=== PATIENT | male | born 1945 | race Caucasian/White ===

== ENCOUNTER 2018-02-14 17:36 | Emergency (ER) | payer OTHER ==
[~2018-02-14] VITALS: Ht 177.8 cm; Wt 81.6 kg
--- NOTE | 2018-02-14 18:04 | ED SYNCOPE COMPLAINT ---
History of Present Illness General Chief Complaint: Syncope and Near-Syncope Stated Complaint: BIBA FOR SYNCOPE Source: patient, old records, EMS Exam Limitations: no limitations Vital Signs & Intake/Output Vital Signs & Intake/Output Vital Signs Date Time Temp Pulse Resp B/P B/P Pulse O2 O2 Flow FiO2 Mean Ox Delivery Rate 02/14 1922 98.0 71 20 142/89 02/15 1920 98.0 71 20 142/89 96 Room Air 02/15 1752 98.0 73 20 133/71 95 Room Air Allergies Coded Allergies: NO KNOWN ALLERGIES (09/13/11) Triage Nurses Notes Reviewed? yes HPI: Patient brought in by ambulance after a syncopal episode at home which was witnessed by his . Patient has no recollection of what happened. Patient thinks he might been getting up to do something but can't even say for sure that he was doing that. Patient is a drinker but does not remember if he had anything the drink today. His is not present in the emergency department. Patient noted to have an abrasion to his tongue with dried blood on his lips. Patient denies any seizure-like activity that he remembers and EMS states that the did not mention anything about it. Patient is unsure if he took an extra dose of insulin by mistake. He denies any suicidal or homicidal ideations. (Aidan STEPHENS,Martín Dozier) Past History Travel History Traveled to [place] past 21 day No Medical History Any Pertinent Medical History? see below for history Cardiovascular: AFIB, hypertension Endocrine: diabetes History of MRSA: No History of VRE: No History of CDIFF: No Surgical History Surgical History: non-contributory Psychosocial History Who do you live with Spouse Services at Home None What is your primary language Slovenian Tobacco Use: Quit >30 days ago ETOH Use: heavy use Illicit Drug Use: denies illicit drug use Family History Hx Contributory? No (Martín Bermudez MD) Review of Systems Review of Systems Constitutional: Reports: no symptoms. EENTM: Reports: no symptoms. Respiratory: Reports: no symptoms. Cardiovascular: Reports: no symptoms. GI: Reports: no symptoms. Genitourinary: Reports: no symptoms. Musculoskeletal: Reports: no symptoms. Skin: Reports: no symptoms. Neurological/Psychological: Reports: no symptoms. All Other Systems: Reviewed and Negative (Aidan STEPHENS,Martín Dozier) Physical Exam Physical Exam General Appearance: well developed/nourished, alert, awake, anxious, mild distress Head: atraumatic, normal appearance Eyes: Bilateral: PERRL, EOMI. Ears, Nose, Throat: TONGUE ABRASION Neck: normal inspection, supple, full range of motion Respiratory: normal breath sounds, chest non-tender, no respiratory distress, lungs clear Cardiovascular: normal peripheral pulses, irregularly irregular Gastrointestinal: normal bowel sounds, soft, non-tender, no organomegaly Back: normal inspection, normal range of motion Extremities: normal inspection, normal capillary refill, normal range of motion, no edema Psychiatric: awake, alert, oriented x 3 Cranial Nerves: normal hearing, normal speech, PERRL Coordination/Gait: normal finger to nose Motor/Sensory: no motor/sensory deficits Skin: intact, normal color, warm/dry Core Measures ACS in differential dx? No CVA/TIA Diagnosis: No Sepsis Present: No Sepsis Focused Exam Completed? No (Aidan STEPHENS,Martín Dozier) Progress Differential Diagnosis: AMI, orthostatic syncope, seizure, HYPOGLYCEMIA Plan of Care: Orders Procedure Date/time Status Add-on Test (ER Only) 02/14 1830 Active MAGNESIUM 02/14 1805 Complete Telemetry/Contact Lens Technician 02/14 1803 Active URINE DRUG SCREEN FOR ER ONLY 02/14 1803 Active URINALYSIS 02/14 1803 Active TROPONIN LEVEL 02/14 1803 Complete ETHANOL 02/14 1803 Complete COMPREHENSIVE METABOLIC PANEL 02/14 1803 Complete CREATINE PHOSPHOKINASE 02/14 1803 Complete CBC WITHOUT DIFFERENTIAL 02/14 1803 Complete EKG 02/14 1736 Active Current Medications Sig/Cesar Start time Last Medication Dose Stop Time Status Admin Cyanocobalamin/ 1 BAG ONCE ONE 02/15 2000 AC 02/14 Thiamine/Pyridoxine 02/15 0401 1928 (Vitamin in I.V.) Magnesium Sulfate 2 GM Dextrose/Water 1,000 ML (D5W 1000) Cyanocobalamin/ 1 BAG ONCE ONE 02/14 1830 CAN Thiamine/Pyridoxine 02/15 0229 (Vitamin in I.V.) Dextrose/Water 1,000 ML (D5W 1000) Laboratory Tests 02/14/18 1805: Anion Gap 16, Estimated GFR > 60, BUN/Creatinine Ratio 8.9, Glucose 195 H, Calcium 9.1, Magnesium 1.5 L, Total Bilirubin 0.7, AST 69 H, ALT 54, Alkaline Phosphatase 71, Creatine Kinase 127, Troponin I < 0.01, Total Protein 6.6, Albumin 4.0, Globulin 2.6, Albumin/Globulin Ratio 1.5, CBC w Diff NO MAN DIFF REQ, RBC 4.06 L, MCV 97.9 H, MCH 33.5 H, MCHC 34.3, RDW 13.3, MPV 8.1, Gran % 74.3, Lymphocytes % 13.5 L, Monocytes % 10.7 H, Eosinophils % 1.1, Basophils % 0.4, Absolute Granulocytes 5.6, Absolute Lymphocytes 1.0 L, Absolute Monocytes 0.8 H, Absolute Eosinophils 0.1, Absolute Basophils 0, Serum Alcohol 15.0 Diagnostic Imaging: Viewed by Me: Radiology Read, CT Scan. Discussed w/RAD: Radiology Read, CT Scan. Initial ED EKG: AFIB, nonspecific ST T wave chg Prior EKG: unchanged Rhythm Strip: atrial fibrillation Hand-Off Endorsed To: Awa Diallo MD Endorsed Time: 1899 Pending: CT, labs Comments: is now at the bedside and patient is much more awake alert and oriented. states that she found him face first on the ground and his arms were shaking and he sounded like he was snoring. Patient had been on his way to the liquor store but never made it out of the house. His last drink was at 1 PM today. Patient states that he drank chetan rita and that always raises his blood sugar so he took an extra dose of insulin. Patient states that he knows he is a heavy drinker but has no desire to stop drinking and does not want alcohol detox. (Aidan STEPHENS,Martín Dozier) Comments: The patient was seen by me (Dr. Diallo) and insists on going home despite being advised to be admitted for possible seizure. Patient's repeat neurologic exam is normal. His is in the room and concurs with the patient's plan. We discussed the need to avoid alcohol, to check his blood sugars 4 times a day and to eat and exercise normally and to complete his evaluation for possible depression with his PCP with whom he has an appointment on February 25. Patient is stable for discharge at this time. (Awa Diallo MD) Departure Departure Disposition: STILL A PATIENT Condition: Stable Referrals: Dipak STEPHENS,Ben J. (PCP/Family) Departure Forms: Customer Survey General Discharge Information (Aidan STEPHENS,Martín Dozier) Departure Clinical Impression Primary Impression: Seizure Secondary Impressions: Alcohol dependence, Depression, Hypoglycemia (Yoel STEPHENS,Awa)
[2018-02-14 18:26] LABS: ABSOLUTE BASOPHIL COUNT 0 /CUMM (0.0-0.2); ABSOLUTE EOSINOPHIL COUNT 0.1 /CUMM (0.0-0.7); ABSOLUTE GRANULOCYTE CT 5.6 /CUMM (1.4-6.5); ABSOLUTE MONOCYTE COUNT 0.8 /CUMM (0.10-0.60); BASOPHIL % 0.4 % (0.0-2.0); EOSINOPHIL % 1.1 % (0-5); GRANULOCYTE % 74.3 % (42.2-75.2); HEMATOCRIT 39.7 % (42-52); MEAN CORPUSCULAR HGB 33.5 PG (27.0-31.0); MEAN CORPUSCULAR HGB CONC 34.3 G/DL (33.0-37.0); MEAN CORPUSCULAR VOLUME 97.9 FL (80.0-94.0); MEAN PLATELET VOLUME 8.1 FL (7.4-10.4); PLATELET COUNT 193 /CUMM (130-400); RBC DISTRIBUTION WIDTH 13.3 % (11.5-14.5); RED BLOOD CELL CT 4.06 /CUMM (4.70-6.10); WHITE BLOOD CELL COUNT 7.6 /CUMM (4.8-10.8)
--- NOTE | 2018-02-14 19:45 | RADIOLOGY REPORT ---
EXAMINATION: XR CHEST PORTABLE CLINICAL INFORMATION: Chest pain. COMPARISON: Chest radiography 09/13/2011. TECHNIQUE: Portable frontal view of the chest was obtained. FINDINGS: The lungs are mildly hypoexpanded. There is left retrocardiac basilar opacification. No pulmonary edema, pneumothorax, or right pleural effusion. No mediastinal widening. No acute osseous abnormalities. IMPRESSION: Nonspecific left basilar opacification, consider atelectasis, pneumonia, aspiration, and/or pleural effusion.
--- NOTE | 2018-02-14 19:46 | CT SCAN REPORT ---
EXAMINATION: CT HEAD AND CERVICAL SPINE. CLINICAL INFORMATION: Fall. Syncope. Head injury. COMPARISON: Brain MRI 04/18/2009. TECHNIQUE: Ticket Sales Agent images were obtained. CT acquisition of the head and cervical spine was performed without contrast. Data was reformatted into multiplanar images at the acquisition workstation. DLP: 1035.71 mGy-cm. 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 Cochran-white matter differentiation is otherwise grossly preserved and there is no evidence of acute territorial infarct. There is no acute hemorrhage or abnormal extra-axial collection. No intracranial mass effect or midline shift. Lateral and third ventricles are proportionate to the subarachnoid spaces. No hydrocephalus. There is mild swelling of the left parietal scalp. The calvarium and skull base are intact. Mastoid air cells and middle ear cavities are well aerated. Visualized paranasal sinuses are well-aerated. Globes and orbits are symmetric. Cervical spine: Alignment is normal. Vertebral heights are preserved. There is no acute fracture. No abnormal prevertebral soft tissue swelling. There is loss of intervertebral disc height with associated sclerotic degenerative endplate changes and hypertrophic disc osteophyte spurring at multiple levels. There is at least moderate canal stenosis at C6-C7 and mild canal stenosis at multiple additional levels. There are varying degrees of neuroforaminal encroachment related to uncovertebral joint spurring and facet degenerative change at multiple levels. Heavily calcified atheromatous plaque involves both carotid bifurcations. Soft tissues of the neck including the thyroid gland are otherwise unremarkable. Visualized lung apices are clear. IMPRESSION: Head: There is no acute intracranial hemorrhage. Mild focal swelling of the left parietal scalp near the vertex. 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 Cervical spine: Advanced multilevel degenerative spondylosis of the cervical spine. No acute fracture and no traumatic spinal subluxation. Hypertrophic disc osteophyte spurring causes at least moderate canal stenosis at C6-C7 and there is a mild canal stenosis at multiple additional levels. Uncovertebral joint spurring and facet degenerative change causes varying degrees of neuroforaminal encroachment multiple levels.
[2018-02-14 21:40] VITALS: BP 151/80
== END 2018-02-14 21:55 | disposition still patient (30) ==
LOC: ERH 17:36
PROVIDERS: Emergency Medicine
DX: R56.9 Unspecified convulsions (principal); F10.20 Alcohol dependence, uncomplicated; F32.9 Major depressive disorder, single episode, unspecified; E11.649 Type 2 diabetes mellitus with hypoglycemia without coma; I48.91 Unspecified atrial fibrillation; I10 Essential (primary) hypertension; Z87.891 Personal history of nicotine dependence
CPT/HCPCS: 71045; 80307; 93005; 93010; 96374; 96375; G0480; J2405; J7060